=== PATIENT | male | born 1975 | race Caucasian/White ===

== ENCOUNTER 2020-12-16 11:05 | Outpatient (CLI) | payer OTHER, SELFPAY ==
--- NOTE | ~2020-12-16 | XR_ITS ---
EXAMINATION: XR cervical spine 4-5V EXAM DATE: 12/16/2020 11:33 INDICATION: Neck pain no injury. TECHNIQUE: Cervical spine frontal, lateral, lateral swimmers, and open-mouth odontoid projections. C omparison is made to prior examination from 05/15/2017. FINDINGS: Mild disc disease at C5-6 and 6-7. Straightening of normal cervical lordosis could be posi tional or spasm. The vertebral body and disc heights are otherwise well maintained. There is no ev idence of acute cervical fracture. The odontoid process is intact. Pre-dens space is normal. Preve rtebral soft tissue is normal. There are no soft tissue abnormalities identified. The vertebral bodies are aligned. Evidence of only mild arthropathy. IMPRESSION: Mild cervical spondylosis. Straightening cervical lordosis, positional versus spasm. Reviewed, dictated and finalized at location A. IMPRESSION: Mild cervical spondylosis. Straightening cervical lordosis, positio nal versus spasm.
== END 2020-12-16 11:06 | disposition home or self-care (01) ==
LOC: ANHIMG 11:13
PROVIDERS: PCP Emergency Medicine; Visit Provider Emergency Medicine
DX: M47.892 Other spondylosis, cervical region (principal)
CPT/HCPCS: 72050

== ENCOUNTER 2022-02-22 13:59 | Outpatient (CLI) | payer OTHER, SELFPAY ==
--- NOTE | ~2022-02-22 | XR_ITS ---
XR shoulder LT min 2V DATE: 02/22/2022 14:47 INDICATION: Left shoulder pain, neck pain TECHNIQUE: 4 views COMPARISON: None FINDINGS: No fracture or dislocation, periosteal reaction or bone destruction or abnormal soft tissue calcification. Normal alignment at the acromioclavicular and glenohumeral joints. IMPRESSION: Negative Reviewed, dictated and finalized at location A. IMPRESSION: Negative
--- NOTE | ~2022-02-22 | XR_ITS ---
XR cervical spine 4-5V DATE: 02/22/2022 14:47 INDICATION: Neck pain, left shoulder pain TECHNIQUE: AP, open-mouth, lateral, swimmer views COMPARISON: None FINDINGS: There is straightening of the cervical spinal which may be due to muscle spasm. C1 and C2 are normally aligned and the odontoid process is intact. No fracture or dislocation or lock ed facet or prevertebral soft tissue swelling. There is minimal anterolisthesis at C4-5. There is mild posterior spurring at C5-6. There is mild degenerative disc disease including mild anterior posterior spurring at C6-7. IMPRESSION: Straightening Mild degenerative change Reviewed, dictated and finalized at location A.
== END 2022-02-22 14:00 | disposition home or self-care (01) ==
PROVIDERS: PCP Emergency Medicine; Visit Provider Emergency Medicine
DX: M50.30 Other cervical disc degeneration, unspecified cervical region (principal); M25.512 Pain in left shoulder
CPT/HCPCS: 72050; 73030

== ENCOUNTER 2023-04-28 12:49 | Outpatient (CLI) | payer OTHER, SELFPAY ==
--- NOTE | ~2023-04-28 | XR_ITS ---
AP lateral views of the bilateral hips Clinical history: Pain Findings: No acute fracture or dislocation is seen. Osseous alignment is anatomic. Bilateral hip and SI joint spaces are preserved. Soft tissues are unremarkable. Impression: No significant abnormality is seen. Reviewed, dictated and finalized at [facility]. 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
--- NOTE | ~2023-04-28 | XR_ITS ---
Lumbosacral Spine: AP and lateral views Clinical History: Pain Findings: The normal lordotic curve is maintained. The vertebral bodies and posterior elements are i ntact. There is mild degenerative disc change L5-S1. There is mild facet arthropathy L5-S1. The sacro iliac joints are normally outlined. Impression: Mild degenerative change at the L5-S1 level, as above. Reviewed, dictated and finalized at location . [employer] Impression: Mild degenerative change at the L5-S1 level, as above.
== END 2023-04-28 12:50 | disposition home or self-care (01) ==
LOC: ANHIMG 12:53
PROVIDERS: PCP Emergency Medicine; Visit Provider Emergency Medicine
DX: M25.552 Pain in left hip (principal); M51.37 Other intervertebral disc degeneration, lumbosacral region
CPT/HCPCS: 72100; 73521